=== PATIENT | male | born 1975 | race Two or more races ===

== ENCOUNTER 2018-11-16 12:39 | Emergency (ER) | payer SELFPAY ==
[2018-11-16] MEDS ORDERED: LIDOCAINE 1% INJ-PF (10 MG/ML) 30 ML SDV INJ ONE (15:50)
--- NOTE | 2018-11-16 15:55 | ER Document Report ---
ED General - General Chief Complaint: Laceration Stated Complaint: LEFT THUMB LACERATION Time Seen by Provider: 11/16/18 15:50 Mode of Arrival: Ambulatory Information source: Patient TRAVEL OUTSIDE OF THE [place] IN LAST 30 DAYS: No - HPI Patient complains to provider of: Left thumb laceration Onset: Just prior to arrival Onset/Duration: Sudden Severity: Moderate Pain Level: 3 Context: Cut left thumb while cutting drywall Associated symptoms: None Exacerbated by: Movement Relieved by: Denies Similar symptoms previously: No Recently seen / treated by doctor: No Notes: Patient is a 43-year-old male coming in today with left thumb laceration. Apparently sliced his left thumb while cutting drywall with a straight razor. He believes that his last tetanus shot was about 10 years ago. - Related Data Allergies/Adverse Reactions: No Known Allergies Allergy (Unverified 11/16/18 12:40) Past Medical History - General Information source: Patient - Social History Smoking Status: Former Smoker Frequency of alcohol use: Occasional Drug Abuse: None Family History: Reviewed & Not Pertinent Patient has suicidal ideation: No Patient has homicidal ideation: No Renal/ Medical History: Denies: Hx Peritoneal Dialysis Past Surgical History: Reports: Hx Orthopedic Surgery - left elbow fx repair Review of Systems - Review of Systems Notes: Constitutional: No fevers. No chills. EENT: No eye redness. No eye pain. No ear pain. No sore throat. Cardiovascular: No chest pain. No palpitations. Respiratory: No cough. No shortness of breath. No respiratory distress. Gastrointestinal: No abdominal pain. No nausea, vomiting, or diarrhea. Genitourinary: Atraumatic. No lesions. No pain. No discharge. Musculoskeletal: Atraumatic. No swelling. No deformities. Positive for left thumb laceration Skin: No rash or lesions. Lymphatic: No swollen lymph nodes. Neurologic: No headache. No syncope. Psychiatric: No suicidal or homicidal ideation. Physical Exam - Vital signs Vitals: Temp Pulse Resp BP Pulse Ox 98.3 F 72 18 140/84 H 97 11/16/18 12:43 11/16/18 12:43 11/16/18 12:43 11/16/18 12:43 11/16/18 12:43 - Notes Notes: General: Well-developed, well-nourished. In no acute distress. Non-toxic appearing. Cardiac: Well-perfused. Regular rate and rhythm. No murmurs, rubs, or gallops. Pulmonary: No respiratory distress. No cyanosis. Bilateral lung fiels are clear to auscultation. Abdominal: Non-distended. Non-rigid. Bowels sounds are present in all four quadrants. No guarding or rebound. HEENT: Head is atraumatic. Conjunctivae not reddened. No tearing. PERRL. EOMI. Orbits atraumatic. No periorbital swelling or erythema. Oropharynx is without erythema, swelling, or exudates. Neck: Supple. No adenopathy. No meningismus. Dermatologic: Warm with good turgor. No rash. Atraumatic. Chest: Atraumatic. No chest wall tenderness to palpation. Musculoskeletal: Moves all extremities well. No range of motion deficits. no muscular or joint tenderness. No paraspinal muscle tenderness. no midline spinal tenderness or step-off. 4 cm laceration left thumb that does involve the nail and possibly the nail bed. No range of motion deficits. Neurovascularly intact Genitourinary: Examination deferred Neurologic: No gross neurologic deficits. Psychiatric: Normal mood. Course - Vital Signs Vital signs: Temp Pulse Resp BP Pulse Ox 98.3 F 72 18 140/84 H 97 11/16/18 12:43 11/16/18 12:43 11/16/18 12:43 11/16/18 12:43 11/16/18 12:43 Procedures - Laceration/Wound Repair left thumb laceration Time completed: 17:48 Wound length (cm): 4 Wound's Depth, Shape: Linear Anesthetic type: 1% Lidocaine Volume Anesthetic (mLs): 10 Wound explored: Clean Wound Repaired With: Sutures Suture Size/Type: 4:0, Ethilon Number of Sutures: 8 Post-procedure wound care: Sterile dressing applied, Splint applied Post-procedure NV exam normal: Yes Complications: No Notes: 11/16/18 17:50 Please note that the procedure was completed by Fabienne DOSHI. I inspected her work and I am satisfied with the wound closure as described. Discharge - Discharge Clinical Impression: Finger laceration Qualifiers: Encounter type: initial encounter Finger: thumb Damage to nail status: with damage Foreign body presence: without foreign body Laterality: left Qualified Code(s): S61.112A - Laceration without foreign body of left thumb with damage to nail, initial encounter Condition: Good Disposition: HOME, SELF-CARE Instructions: Antibiotic Ointment Protection (OM), Laceration Care (OM), Tetanus Immunization Given ([facility]) Additional Instructions: Please return to the emergency department in 10 days to have your sutures removed. Return sooner if you notice signs of infection including redness, swelling, increased pain, fever, or pus formation
[2018-11-16 18:02] VITALS: BP 118/85
[2018-11-16] MEDS ORDERED: DIPH/PERTUSS(ACELL)/TETANUS VAC/PF 0.5 ML SYR (>=10YO) IM ONE (18:03)
== END 2018-11-16 18:21 | disposition home or self-care (01) ==
LOC: ER 12:39
DX: S61.112A Laceration without foreign body of left thumb with damage to nail, initial encounter (principal); W26.8XXA Contact with other sharp object(s), not elsewhere classified, initial encounter; Y93.89 Activity, other specified; Z87.891 Personal history of nicotine dependence
CPT/HCPCS: 90471; 90715; 99282

== ENCOUNTER 2018-11-29 19:15 | Emergency (ER) | payer SELFPAY ==
--- NOTE | 2018-11-29 22:22 | ER Document Report ---
ED General - General Chief Complaint: Suture Removal Stated Complaint: SUTURE REMOVAL Time Seen by Provider: 11/29/18 22:11 Mode of Arrival: Ambulatory Information source: Patient TRAVEL OUTSIDE OF THE [place] IN LAST 30 DAYS: No - HPI Patient complains to provider of: Suture removal left thumb Onset: Other - Approximately 10 days ago Onset/Duration: Sudden Quality of pain: No pain Severity: None Associated symptoms: None Exacerbated by: Denies Similar symptoms previously: No Recently seen / treated by doctor: No Notes: 43-year-old male here for suture removal to left thumb. States sutures were at least 10 days ago placed. No complaints - Related Data Allergies/Adverse Reactions: No Known Allergies Allergy (Unverified 11/16/18 12:40) Past Medical History - General Information source: Patient - Social History Smoking Status: Never Smoker Family History: Reviewed & Not Pertinent Renal/ Medical History: Denies: Hx Peritoneal Dialysis Past Surgical History: Reports: Hx Orthopedic Surgery - left elbow fx repair Review of Systems - Review of Systems Notes: Constitutional: No fevers. No chills. EENT: No eye redness. No eye pain. No ear pain. No sore throat. Cardiovascular: No chest pain. No palpitations. Respiratory: No cough. No shortness of breath. No respiratory distress. Gastrointestinal: No abdominal pain. No nausea, vomiting, or diarrhea. Genitourinary: Atraumatic. No lesions. No pain. No discharge. Musculoskeletal: Sutures left thumb Skin: No rash or lesions. Lymphatic: No swollen lymph nodes. Neurologic: No headache. No syncope. Psychiatric: No suicidal or homicidal ideation. Physical Exam - Vital signs Vitals: Temp Pulse Resp BP Pulse Ox 98.1 F 88 16 119/77 98 11/29/18 19:20 11/29/18 19:20 11/29/18 19:20 11/29/18 19:20 11/29/18 19:20 - Notes Notes: General: Well-developed, well-nourished. In no acute distress. Non-toxic appearing. Cardiac: Well-perfused. Regular rate and rhythm. No murmurs, rubs, or gallops. Pulmonary: No respiratory distress. No cyanosis. Bilateral lung fiels are clear to auscultation. Abdominal: Non-distended. Non-rigid. Bowels sounds are present in all four quadrants. No guarding or rebound. HEENT: Head is atraumatic. Conjunctivae not reddened. No tearing. PERRL. EOMI. Orbits atraumatic. No periorbital swelling or erythema. Oropharynx is without erythema, swelling, or exudates. Neck: Supple. No adenopathy. No meningismus. Dermatologic: Warm with good turgor. No rash. Atraumatic. Chest: Atraumatic. No chest wall tenderness to palpation. Musculoskeletal: Left thumb laceration with sutures in place. Well-healed. No evidence of infection Genitourinary: Examination deferred Neurologic: No gross neurologic deficits. Psychiatric: Normal mood. Course - Re-evaluation Re-evalutation: 11/29/18 22:25 Carmencita will remove the sutures. - Vital Signs Vital signs: Temp Pulse Resp BP Pulse Ox 98.1 F 88 16 119/77 98 11/29/18 19:20 11/29/18 19:20 11/29/18 19:20 11/29/18 19:20 11/29/18 19:20 Discharge - Discharge Clinical Impression: Encounter for removal of sutures Condition: Good Disposition: HOME, SELF-CARE Instructions: Suture Removal Additional Instructions: Keep wound clean and dry. Return to the ER as needed Referrals: [facility] [Provider Group] - Follow up as needed
[2018-11-29 22:42] VITALS: BP 114/85
== END 2018-11-29 22:40 | disposition home or self-care (01) ==
LOC: ER 19:15
DX: S61.012D Laceration without foreign body of left thumb without damage to nail, subsequent encounter (principal); X58.XXXD Exposure to other specified factors, subsequent encounter